=== PATIENT | female | born 1935 | race Caucasian/White ===

== ENCOUNTER 2019-05-13 08:32 | Inpatient (IN) ==
--- NOTE | 2019-05-13 10:10 | Diag Imaging Result Doc PS360 ---
CT HEAD/C-SPINE W/O CONTRAST - 05/13/2019 INDICATION: FALL COMPARISON: 10/14/2017 FINDINGS: Head CT: Stable cerebral atrophy. Grossly stable periventricular white matter chronic microvascular disease mainly on the right side. No intracranial mass or hemorrhage. The skull is intact. The sinuses, mastoids, and middle ears are clear. Cervical spine: Alignment is anatomic. No fracture or subluxation. There is mild multilevel degenerative disc disease at the lower cervical spine. Soft tissues are clear. IMPRESSION: No acute injury. This exam was performed using automated exposure control, adjustment of mA or kV according to patient size, and/or use of iterative reconstruction technique Electronically signed by Doni Oliva 05/13/2019 10:07 AM
--- NOTE | 2019-05-13 10:14 | Diag Imaging Result Doc PS360 ---
CT LUMBAR SPINE W/O CONTRAST - 05/13/2019 INDICATION: FALL COMPARISON: 09/04/2013 FINDINGS: There is mild compression deformity of L1 with about 25% loss of height. This fracture was not present in 2012. Alignment is anatomic. No subluxation. Disc spaces are observed. Moderate degeneration of the sacroiliac joints. No central canal compromise. IMPRESSION: Presumably acute, mild L1 compression fracture. This exam was performed using automated exposure control, adjustment of mA or kV according to patient size, and/or use of iterative reconstruction technique Electronically signed by Doni Oliva 05/13/2019 10:11 AM
--- NOTE | 2019-05-13 10:20 | PROVIDER DOCUMENTATION ---
HPI-Musculoskeletal Pain/Inj - GENERAL Chief Complaint: Back Injury Stated Complaint: LBP Time Seen by Provider: 05/13/19 08:50 Source: patient - HX OF PRESENT ILLNESS-MUSKULOSKELTAL Nature of Presenting Problem: A 83 Y/O FEMALE PRESENTS WITH C/O BACK PAIN. PAIN STARTED AFTER MON OR TOSIN (PT DOES NOT REMEMBER) AFTER SHE FELL WHILE TRYING TO AMBULATE TO RESTROOM USING HER WALKER. HER HOME HEALTH WAS HELPING HER. PT HIT HER HEAD WHEN SHE FELL AND THERE WAS NO LOC. DENIES NAY RADIATION OF PAIN DOWN THE LEGS, TINGLING OR NUMBNESS OR NEW WEAKNESS. PAIN IS ABOUT A 8 AND ANY MOVEMENT MAKES IT WORSE. DENIES ANY LOSS OF BOWEL OR BLADDER CONTROL. TAKES ASPIRIN. DENIES ANY NECK PAIN OR ANY OTHER SYMPTOMS. Quality of Pain: reports: sharp Severity in ED: moderate Onset/Duration: last week Timing: still present, constant, getting worse Modifying Factors: improves with: immobilization, lying down, rest. worse with: movement Any recent injury?: Yes Locality of Occurance: Home Similar Symptoms Previously?: No Recently seen or treated by another doctor?: No - FALL INJURY Location of Pain/Injury: reports: back Pain Radiation: reports: no radiation Reason for Fall: reports: tripped Symptoms prior to fall:: reports: none Loss of Consciousness: no loss of consciousness Injury Associated Symptoms: reports: back/neck pain - BACK & NECK PAIN/INJURY Back/Neck Pain Location: reports: lumbar spine Review of Systems - Adult - REVIEW OF SYSTEMS - ADULT Constitutional: reports: no symptoms reported Eyes: reports: no symptoms reported Ears, Nose, Mouth & Throat: reports: no symptoms reported Cardiovascular: reports: no symptoms reported Respiratory: reports: no symptoms reported Gastrointestinal: reports: no symptoms reported Genitourinary: reports: no symptoms reported Musculoskeletal: reports: see HPI Integumentary: reports: no symptoms reported Neurological: reports: no symptoms reported Psychiatric: reports: no symptoms reported Endocrine: reports: no symptoms reported Hematologic/Lymphatic: reports: no symptoms reported Allergic/Immunologic: reports: no symptoms reported Past History - Adult - PAST MEDICAL HISTORY-ADULT Review of Records: reports: Nursing Assessment Review, Medications Reviewed, Social history reviewed & non-contributory. Major Childhood Illnesses: reports: denies history Cardiovascular: reports: HTN Respiratory: reports: denies history Gastrointestinal: reports: denies history Obstetrical/Gynecological: reports: denies history Genitourinary: reports: denies history Musculoskeletal: reports: denies history Neurological: reports: denies history Endocrine/Immune: reports: denies history Other Conditions: reports: other cancer (skin) - IMMUNIZATION STATUS Childhood Immunizations: See Nurse Assessment Flu Vaccine: See Nurse Assessment - FAMILY HISTORY Family History: reviewed, not pertinent Physical Exam-Injury Related - Physical Exam-Injury Related Initial Vital Signs Reviewed: Yes General Appearance: appears well, alert, no apparent distress Eyes: PERRL/EOMI Head, Ears, Nose, Mouth & Throat: normocephalic/atraumatic, moist mucous membranes, normal ENT inspection Neck: non-tender, supple Respiratory: lungs clear, normal breath sounds, no respiratory distress, no accessory muscle use Cardiovascular: regular rate, rhythm, no JVD, no murmur Abdominal Exam: normal bowel sounds, non tender, soft Back Exam: normal inspection, no CVA tenderness, vertebral tenderness (L1-L3) Extremity: no pedal edema Integumentary: normal color Neurologic: other (NO NEW NEUROLOGICAL DEFICITS) Psych/Mental Status: normal mood/affect, oriented x 3 - Glascow Coma Score Best Eye Response ([place]): (4) open spontaneously Best Verbal Response (Luisa): (5) oriented Best Motor Response ([place]): (6) obeys commands Luisa Total: 15 Progress - PLAN OF CARE/RESULTS Progress/Plan/Lab Results: Vital Signs - 8 hr 05/13/19 11:43 05/13/19 12:00 05/13/19 14:00 Temperature 98.2 F 98.1 F Pulse Rate 76 86 78 Respiratory Rate 20 20 20 Blood Pressure 111/86 131/64 130/90 O2 Sat by Pulse Oximetry 97 97 98 Orders Category Date Time Status Admit - [facility] Routine AdmDCTranf 05/13/19 14:28 Active Activity - Up with Assistance ORDERED Care 05/13/19 14:28 Active Apply Mechanical Device [QM] ORDERED Care 05/13/19 14:28 Active Intake and Output-Strict ORDERED Care 05/13/19 14:28 Active Nursing- MD Consult Request ROUTINE Care 05/13/19 14:44 Active Update & Confirm Home Medicati ROUTINE Care 05/13/19 14:31 Active Vital Signs Order Q 8-HR ASSESS Care 05/13/19 14:28 Active Physician/Provider Consults Routine Cons 05/14/19 08:00 Ordered Social Service Consult Routine Cons 05/14/19 08:[address] HEAD/C-SPINE W/O CONTRAST [CT] Stat Exams 05/13/19 09:[address] LUMBAR SPINE W/O CONTRAST [CT] Stat Exams 05/13/19 09:03 Completed BASIC METABOLIC PANEL [CHEM] Routine Lab 05/14/19 06:00 Ordered CBC WITH DIFF [HEME] Routine Lab 05/14/19 06:00 Ordered CBC WITH DIFF [HEME] Stat Lab 05/13/19 15:45 Completed COMPREHENSIVE METABOLIC PANEL [CHEM] Stat Lab 05/13/19 15:45 Completed Hydrocodone/APAP 7.5 mg/325 mg [Winfred-7.5] Med 05/13/19 10:26 Discontinued 1 each PO NOW ONE Omeprazole [Prilosec] Med 05/14/19 07:00 Active 40 mg PO DAILY@0700 Polyethylene Glycol 3350 [Miralax] Med 05/14/19 09:00 Active 17 gm PO DAILY Physical Therapy Eval/Treatment [OM.PT] Routine Ther 05/14/19 08:00 Active Transfer/Admit Order [TRANSFER] Routine Transfer 05/13/19 14:44 Completed Result Diagrams: 05/13/19 15:45 05/13/19 15:45 - CONSULTS/PCP/HOSPITALIST Notification #1 *Consult/PCP/Hospitalist*: D/W DR DIAS Time Discussed: 12:05 Reason/Comments: ADVISED ADMISSION, ADVISED TO INFORM HOSPITALIST Consult Disposition: Admit #2 Consult: D/W DR ELENA Reason/Comments: ACCEPTED THE ADMISSION Consult Disposition: Admit Departure - Departure Date of Disposition Decision: 05/13/19 Time of Disposition Decision: 01:05 DIAGNOSIS: Fall, Back pain, Compression fracture of L1 lumbar vertebra Disposition: ADMITTED INPATIENT 09 Certified Medical Emergency: Emergent Condition: Stable - Critical Care Note This patient required my direct & personal management of CC.: No Attestation - Physician/ DIOGENES Attestation Patient care was provided by Advanced Practice Provider:: No The physician spent face to face time with patient:: Yes Advanced Practice Provider documentation review:: Supervising physician onsite and consulted in the evaluation and care of this patient. The physician did have a face to face encounter with the patient.
[2019-05-13] MEDS ORDERED: NORCO-7.5 PO ONE (10:26)
--- NOTE | 2019-05-13 15:02 | HISTORY AND PHYSICAL ---
PRIMARY CARE PHYSICIAN: Dr. Perry Torres. CHIEF COMPLAINT: Fall, back pain. HISTORY OF PRESENT ILLNESS: This is an 83-year-old female with a history of hypertension, gastroesophageal reflux disease, and a stroke in 10/2017 that resulted in left- sided weakness. She is wheelchair bound, although she can transfer with help from wheelchair to toilet or a chair. She reports falling on her back from a standing position, while standing beside her wheelchair to get dressed. She reports low back pain right immediately after falling. Over the last 2 to 3 days, The pain radiates down through her buttocks down both legs. She states that she has not been able to transfer alone over the last 24 hours due to the increased pain. She denied any decreased sensation or numbness to her lower extremities. She denies bowel incontinence. She does have urinary incontinence since the stroke. PAST MEDICAL HISTORY: Hypertension, gastroesophageal reflux disease, hyperlipidemia, CVA in 10/2017 with left-sided weakness. PAST SURGICAL HISTORY: Hysterectomy and splenectomy. SOCIAL HISTORY: She denies alcohol, tobacco, or illicit drug use. ALLERGIES: Hydrochlorothiazide, which causes a rash; penicillin, which causes a rash; sulfa, which causes nausea and vomiting. HOME MEDICATIONS: A list will be obtained by the nursing staff, and once verified, will review and restart as appropriate. PHYSICAL EXAMINATION: GENERAL: This is an 83-year-old female who is lying in the bed in the emergency room in no distress. VITAL SIGNS: Blood pressure is 131/64, heart rate of 86, respirations 20, temperature is 98.2 degrees oral, with O2 saturation of 97%. EYES: Pupils equal, round, react to light. EOMs are intact. Sclerae anicteric. HENT: Head is normocephalic, atraumatic. Mucous membranes are moist. NECK: Supple with trachea midline. CARDIOVASCULAR: Regular rate and rhythm. S1 and S2 are appreciated. She has no lower extremity edema. Peripheral pulses are palpable x4 extremities, and calves are nontender bilaterally. PULMONARY: Breath sounds are clear with no increased work of breathing noted. Chest rises and falls symmetric with respiration. GASTROINTESTINAL: Abdomen is soft, nontender, nondistended with bowel sounds in all 4 quadrants. BACK: She does have some lumbar tenderness, mid spine, to palpation. No step- offs noted. GENITOURINARY: She has no CVA or suprapubic tenderness. NEUROLOGIC: She is alert and oriented x3. SKIN: Warm and dry. IMAGING AND LABORATORY DATA: There are no labs at present. CT of the head and cervical spine revealed no acute injury. Cervical spine alignment is anatomic. No fracture or subluxation. There is mild multilevel degenerative disk disease at the lower cervical spine. Soft tissues are clear. CT of the head: Stable cerebral atrophy, grossly stable periventricular white matter, chronic microvascular disease mainly on the right side. No intracranial mass or hemorrhage. The skull is intact. Sinuses, mastoids, and middle ears are clear. Lumbar spine CT reveals presumably acute mild L1 compression fracture with about 25% loss of height. Alignment is anatomic. No subluxation. Disk spaces are observed. Moderate degeneration of the sacroiliac joints. No central canal compromise. ASSESSMENT AND PLAN: 1. Fall. 2. L1 compression fracture with 25% of height loss. 3. Back pain secondary to above. 4. Hypertension. Will identify her home medications and continue. 5. Gastroesophageal reflux disease. Start Prilosec. 6. Status post cerebrovascular accident with left-sided weakness. 7. Deep venous thrombosis prophylaxis. Will use sequential compression devices. 8. Gastrointestinal prophylaxis. Prilosec. Consult PT and orthopedics Review home medications and restart as is appropriate. Discussed with Dr Saenz. Further treatments pending hospital course. Dictated by CADEN Santiago for Fransico Saenz MD cc: CADEN Santiago MD [facility]
[2019-05-13 15:55] LABS: BASO# 0.05 X1000 (0.0-0.2); BASO% 0.3 % (0.0-0.8); EOS# 0.91 X1000 (0.0-0.7); EOS% 6.1 % (0.0-10.0); HEMOGLOBIN 13.5 g/dL (12.0-16.0); IMM GRAN# 0.03 X1000 (0.0-0.04); IMM GRAN% 0.2 % (0.0-0.5); LYMPH# 1.96 X1000 (1.2-3.4); LYMPH% 13.2 % (20.5-51.1); MCH 34.2 PG (27-31); MCHC 33.8 g/dL (33-37); MCV 101.3 FL (81-99); MONO# 2.18 X1000 (0.11-0.59); MONO% 14.7 % (1.7-9.3); MPV 11.1 FL (7.4-10.4); NEUT# 9.72 X1000 (1.4-6.5); NEUT% 65.5 % (42.2-75.2); PLT 373 X1000 (130-400); RBC 3.95 XMIL (4.2-5.4); RDW 14.5 % (11.5-14.5); WBC 14.85 X1000 (4.8-10.8)
[2019-05-13 16:12] LABS: AGAP 9; ALBUMIN 3.5 g/dL (3.5-5.0); ALKALINE PHOSPHATASE 107 U/L (32-104); BUN 18 mg/dL (8-22); CALCIUM 9.1 mg/dL (8.8-10.2); CHLORIDE 103 mmol/L (98-107); COSMO 282; CREATININE 0.7 mg/dL (0.5-0.9); ESTIMATED GFR > 60; GLUCOSE 138 mg/dL (70-104); GOT 11 U/L (10-30); GPT 12 U/L (10-36); SODIUM 139 mmol/L (136-145); TCO2 27 mmol/L (25-35); TOTAL PROTEIN 6.5 g/dL (6.3-8.3)
[2019-05-13 19:22] LABS: BILIRUBIN URINE NEGATIVE (NEGATIVE); BLOOD URINE TRACE (NEGATIVE); CLARITY CLEAR (CLEAR); COLOR YELLOW; GLUCOSE URINE NEGATIVE (NEGATIVE); KETONE URINE TRACE mg/dL (NEGATIVE); LEUKOCYTES URINE TRACE (NEGATIVE); NITRITE URINE NEGATIVE (NEGATIVE); PROTEIN URINE TRACE mg/dL (NEGATIVE); UROBILINOGEN URINE NORMAL
[2019-05-13 19:30] LABS: URINE SOURCE CATH
[2019-05-13 19:31] LABS: URINE BACTERIA 1+ /HFP; URINE CAST NONE SEEN /LPF; URINE CRYSTAL NONE SEEN /HPF; URINE EPITHELIAL CELLS >10 /HPF (<10); URINE RBC <10 /HPF (<10); URINE WBC <10 /HPF (<10); URINE YEAST NONE SEEN /HPF
[2019-05-13] MEDS: WELLBUTRIN SR PO SCH (20:29)
[2019-05-13] MEDS: DESYREL PO SCH (20:29)
[2019-05-13] MEDS: NORCO-10 PO PRN (20:29)
[2019-05-13] MEDS: MYRBETRIQ E.R. PO SCH (20:30)
--- NOTE | 2019-05-14 03:59 | HISTORY AND PHYSICAL ---
ADDENDUM: Patient seen and examined by myself. Full note dictated and discussed with nurse practitioner. Patient presented to the hospital after having fallen. She was having back pain. She has been noted to have a compression fracture at L1 with approximately 25% height loss. We will admit her to the hospital for pain control, follow her blood pressures. Please see full note. cc: Fransico Saenz MD
[2019-05-14 05:54] LABS: BASO# 0.03 X1000 (0.0-0.2); BASO% 0.2 % (0.0-0.8); EOS# 1.32 X1000 (0.0-0.7); EOS% 9.7 % (0.0-10.0); HEMATOCRIT 40.9 % (37.0-47.0); HEMOGLOBIN 13.1 g/dL (12.0-16.0); IMM GRAN# 0.03 X1000 (0.0-0.04); IMM GRAN% 0.2 % (0.0-0.5); LYMPH# 2.04 X1000 (1.2-3.4); LYMPH% 14.9 % (20.5-51.1); MCH 33.2 PG (27-31); MCV 103.5 FL (81-99); MONO% 15.4 % (1.7-9.3); MPV 11.4 FL (7.4-10.4); NEUT# 8.13 X1000 (1.4-6.5); NEUT% 59.6 % (42.2-75.2); PLT 393 X1000 (130-400); RBC 3.95 XMIL (4.2-5.4); RDW 14.8 % (11.5-14.5); WBC 13.65 X1000 (4.8-10.8)
[2019-05-14] MEDS: PRILOSEC PO SCH (06:00)
[2019-05-14 06:06] LABS: AGAP 7; BUN 17 mg/dL (8-22); CALCIUM 9.2 mg/dL (8.8-10.2); CHLORIDE 105 mmol/L (98-107); COSMO 284; CREATININE 0.7 mg/dL (0.5-0.9); ESTIMATED GFR > 60; GLUCOSE 126 mg/dL (70-104); POTASSIUM 4.2 mmol/L (3.5-5.1); SODIUM 141 mmol/L (136-145); TCO2 29 mmol/L (25-35)
[2019-05-14] MEDS: THERA M PLUS PO SCH (08:33)
[2019-05-14] MEDS: MIRALAX PO SCH (08:33)
[2019-05-14] MEDS: ASPIRIN EC PO SCH (08:34)
[2019-05-14] MEDS: AVAPRO PO SCH (08:34)
[2019-05-14] MEDS: WELLBUTRIN SR PO SCH ×2 (08:34→21:35)
[2019-05-14] MEDS: UROGESIC-BLUE PO PRN ×2 (11:14→16:22)
[2019-05-14] MEDS: NORCO-10 PO PRN (11:14)
[2019-05-14] MEDS: MYRBETRIQ E.R. PO SCH (21:34)
[2019-05-14] MEDS: DESYREL PO SCH (21:34)
[2019-05-15] MEDS: PRILOSEC PO SCH (06:09)
[2019-05-15] MEDS: WELLBUTRIN SR PO SCH ×2 (09:07→20:12)
[2019-05-15] MEDS: ASPIRIN EC PO SCH (09:07)
[2019-05-15] MEDS: AVAPRO PO SCH (09:07)
[2019-05-15] MEDS: MIRALAX PO SCH (09:07)
[2019-05-15] MEDS: THERA M PLUS PO SCH (09:07)
[2019-05-15] MEDS: NORCO-10 PO PRN ×2 (09:11→20:13)
--- NOTE | 2019-05-15 15:27 | PROGRESS NOTE ---
DATE: 05/15/2019 SUBJECTIVE: Ms. Virk is having a fairly uneventful hospital stay, tolerating her pain relatively easily. Her temperature is 99.3, pulse 96, respiratory rate 18, BP 138/47. She had a saturation of 95 on 2 L. I discussed the case with Dr. Olson, Orthopedics. He thinks that she needs an LSO brace and we are going to try to fit her for that and put her in a rehab hospital in reference to a now L1 fracture plus left hemiparesis. She has no complaints, and we are interested in getting this move done today. cc: Perry Torres MD
--- NOTE | 2019-05-15 19:39 | PROGRESS NOTE ---
DATE: 05/13/2019 Labs revealed a white count of 14,850. Mind you, she has had a splenectomy. Her hematocrit was 40, platelet count was 373. She had a normal differential with relatively increased monocytes. Her chemistries showed sodium 139, potassium 4, chloride 103, CO2 was 27, BUN was 18, creatinine 0.7, GFR greater than 60, BUN to creatinine ratio of 26. Random glucose 138. Calcium 9.1. AST was 11, ALT was 12, total bilirubin 0.5, total protein 6.5, albumin 3.5, globulin is 3. Her urine showed pH of 7, specific gravity 1.010, trace WBCs, less than 10 RBCs, 1+ bacteria. Her urine culture had no growth. OBJECTIVE: Vital signs: Temperature 98, pulse 89, respiratory rate 18, blood pressure 119/41, saturation 97% on [address] showed a presumably acute mild L1 compression fracture, about 25% loss of height, anatomic alignment. No subluxation. Disk spaces are observed. Moderate degenerative changes of the sacroiliac joint. No central canal compromise. She has an underlying stroke some 4 years ago with some primary left lower leg hemiparesis. cc: Perry Torres MD
[2019-05-15] MEDS: DESYREL PO SCH (20:12)
[2019-05-15] MEDS: MYRBETRIQ E.R. PO SCH (20:12)
[2019-05-16] MEDS: PRILOSEC PO SCH (06:02)
[2019-05-16] MEDS: MIRALAX PO SCH (09:02)
[2019-05-16] MEDS: ASPIRIN EC PO SCH (09:02)
[2019-05-16] MEDS: AVAPRO PO SCH (09:02)
[2019-05-16] MEDS: THERA M PLUS PO SCH (09:02)
[2019-05-16] MEDS: WELLBUTRIN SR PO SCH ×2 (09:02→20:19)
[2019-05-16] MEDS: NORCO-10 PO PRN ×2 (13:03→20:21)
[2019-05-16] MEDS: MYRBETRIQ E.R. PO SCH (20:19)
[2019-05-16] MEDS: DESYREL PO SCH (20:19)
[2019-05-17] MEDS: PRILOSEC PO SCH (06:51)
[2019-05-17] MEDS: MIRALAX PO SCH (08:15)
[2019-05-17] MEDS: WELLBUTRIN SR PO SCH ×2 (08:15→20:35)
[2019-05-17] MEDS: ASPIRIN EC PO SCH (08:15)
[2019-05-17] MEDS: AVAPRO PO SCH (08:15)
[2019-05-17] MEDS: THERA M PLUS PO SCH (08:15)
[2019-05-17] MEDS: NORCO-10 PO PRN (20:34)
[2019-05-17] MEDS: DESYREL PO SCH (20:34)
[2019-05-17] MEDS: MYRBETRIQ E.R. PO SCH (20:35)
[2019-05-18] MEDS: PRILOSEC PO SCH (06:26)
[2019-05-18] MEDS: WELLBUTRIN SR PO SCH ×2 (09:12→21:27)
[2019-05-18] MEDS: MIRALAX PO SCH (09:12)
[2019-05-18] MEDS: ASPIRIN EC PO SCH (09:13)
[2019-05-18] MEDS: THERA M PLUS PO SCH (09:13)
[2019-05-18] MEDS: AVAPRO PO SCH (09:13)
[2019-05-18] MEDS: NORCO-10 PO PRN ×2 (09:22→21:27)
[2019-05-18] MEDS ORDERED: DULCOLAX PR PRN (13:28)
--- NOTE | 2019-05-18 14:53 | PROGRESS NOTE ---
DATE: 05/18/2019 She has been here awaiting placement now for some time. She has her brace now, but nobody has really put it on her. She is constipated and has not had a bowel movement since she has been here. She had some sorbitol and now is going to get an enema. Otherwise she is fine, just awaiting that rehab placement per her insurance. cc: Perry Torres MD
[2019-05-18] MEDS: DESYREL PO SCH (21:26)
[2019-05-18] MEDS: MYRBETRIQ E.R. PO SCH (21:27)
[2019-05-19] MEDS: PRILOSEC PO SCH ×2 (05:39→08:58)
[2019-05-19] MEDS: ASPIRIN EC PO SCH (08:57)
[2019-05-19] MEDS: MIRALAX PO SCH (08:57)
[2019-05-19] MEDS: THERA M PLUS PO SCH (08:57)
[2019-05-19] MEDS: AVAPRO PO SCH (08:57)
[2019-05-19] MEDS: WELLBUTRIN SR PO SCH ×2 (08:57→20:05)
[2019-05-19] MEDS: NORCO-10 PO PRN ×2 (15:37→23:35)
[2019-05-19] MEDS: DESYREL PO SCH (20:05)
[2019-05-19] MEDS: MYRBETRIQ E.R. PO SCH (20:05)
[2019-05-20] MEDS: PRILOSEC PO SCH (06:01)
[2019-05-20] MEDS: AVAPRO PO SCH (08:03)
[2019-05-20] MEDS: ASPIRIN EC PO SCH (08:03)
[2019-05-20] MEDS: WELLBUTRIN SR PO SCH ×2 (08:03→20:31)
[2019-05-20] MEDS: CALMOSEPTINE OINTMENT TOP PRN ×2 (08:03→18:18)
[2019-05-20] MEDS: THERA M PLUS PO SCH (08:03)
[2019-05-20] MEDS: MIRALAX PO SCH (08:03)
[2019-05-20 14:40] LABS: URINE SOURCE CATH
[2019-05-20 14:55] LABS: BILIRUBIN URINE NEGATIVE (NEGATIVE); BLOOD URINE 2+ (NEGATIVE); GLUCOSE URINE NEGATIVE (NEGATIVE); KETONE URINE NEGATIVE (NEGATIVE); LEUKOCYTES URINE 2+ (NEGATIVE); NITRITE URINE NEGATIVE (NEGATIVE); PROTEIN URINE 2+(100 mg/dL) mg/dL (NEGATIVE); UROBILINOGEN URINE NORMAL
[2019-05-20 14:56] LABS: CLARITY MUCOUS (CLEAR); COLOR YELLOW
[2019-05-20 14:59] LABS: URINE CRYSTAL TRIPLE PHOS PRESENT /HPF
[2019-05-20 15:00] LABS: URINE EPITHELIAL CELLS >10 /HPF (<10)
[2019-05-20 15:01] LABS: URINE BACTERIA 2+ /HFP; URINE CAST NONE SEEN /LPF; URINE YEAST NONE SEEN /HPF
[2019-05-20] MEDS: NORCO-10 PO PRN (19:35)
[2019-05-20] MEDS: MYRBETRIQ E.R. PO SCH (20:31)
[2019-05-20] MEDS: DESYREL PO SCH (20:32)
[2019-05-21] MEDS: NORCO-10 PO PRN ×3 (05:53→20:40)
[2019-05-21] MEDS: PRILOSEC PO SCH ×2 (05:53→06:02)
[2019-05-21] MEDS: THERA M PLUS PO SCH (08:29)
[2019-05-21] MEDS: ASPIRIN EC PO SCH (08:29)
[2019-05-21] MEDS: CALMOSEPTINE OINTMENT TOP PRN ×3 (08:29→16:35)
[2019-05-21] MEDS: WELLBUTRIN SR PO SCH ×2 (08:29→20:32)
[2019-05-21] MEDS: AVAPRO PO SCH (08:29)
[2019-05-21] MEDS: MIRALAX PO SCH (08:29)
--- NOTE | 2019-05-21 11:17 | Diag Imaging Result Doc PS360 ---
EXAM: CHEST-PORTABLE - 05/21/2019 HISTORY: Jail / Rehab Placement TECHNIQUE: Portable chest COMPARISON: 10/14/2017 FINDINGS: Heart size is normal. The projection is somewhat lordotic, which mildly limits detail at the lung bases. The lungs appear grossly clear. There is no pleural effusion or pneumothorax identified. IMPRESSION: No evidence of acute disease. Electronically signed by Daniel Champion 05/21/2019 11:15 AM
[2019-05-21] MEDS: MYRBETRIQ E.R. PO SCH (20:32)
[2019-05-21] MEDS: DESYREL PO SCH (20:32)
[2019-05-22] MEDS: PRILOSEC PO SCH ×2 (05:54→07:47)
[2019-05-22] MEDS: MIRALAX PO SCH (08:57)
[2019-05-22] MEDS: WELLBUTRIN SR PO SCH ×2 (09:03→20:47)
[2019-05-22] MEDS: NORCO-10 PO PRN ×2 (09:03→20:47)
[2019-05-22] MEDS: THERA M PLUS PO SCH (09:03)
[2019-05-22] MEDS: AVAPRO PO SCH (09:03)
[2019-05-22] MEDS: ASPIRIN EC PO SCH (09:03)
[2019-05-22] MEDS: MYRBETRIQ E.R. PO SCH (20:47)
[2019-05-22] MEDS: DESYREL PO SCH (20:47)
[2019-05-23] MEDS: PRILOSEC PO SCH (06:06)
[2019-05-23] MEDS: ASPIRIN EC PO SCH (09:40)
[2019-05-23] MEDS: NORCO-10 PO PRN ×2 (09:40→21:45)
[2019-05-23] MEDS: AVAPRO PO SCH (09:40)
[2019-05-23] MEDS: THERA M PLUS PO SCH (09:40)
[2019-05-23] MEDS: WELLBUTRIN SR PO SCH ×2 (09:40→21:45)
--- NOTE | 2019-05-23 18:50 | PROGRESS NOTE ---
DATE: 05/23/2019 SUBJECTIVE: She still is awaiting placement. Continues to have pain in her back, but it is more tolerable. She has had a previous history of constipation, and now is actually having a little diarrhea. OBJECTIVE: She has a Andino in place, which she typically does not wear at her other assisted living place, and it is also her birthday. PLAN: Hopefully they will get her a place to stay. cc: Perry Torres MD
[2019-05-23] MEDS: DESYREL PO SCH (21:45)
[2019-05-23] MEDS: MYRBETRIQ E.R. PO SCH (21:45)
[2019-05-24 06:04] LABS: BASO# 0.06 X1000 (0.0-0.2); BASO% 0.5 % (0.0-0.8); EOS# 0.92 X1000 (0.0-0.7); HEMATOCRIT 37.8 % (37.0-47.0); HEMOGLOBIN 12.6 g/dL (12.0-16.0); IMM GRAN# 0.04 X1000 (0.0-0.04); IMM GRAN% 0.3 % (0.0-0.5); LYMPH# 1.97 X1000 (1.2-3.4); MCH 34.1 PG (27-31); MCHC 33.3 g/dL (33-37); MCV 102.4 FL (81-99); MONO# 1.84 X1000 (0.11-0.59); MPV 10.7 FL (7.4-10.4); NEUT% 63.2 % (42.2-75.2); PLT 502 X1000 (130-400); RBC 3.69 XMIL (4.2-5.4); RDW 14.5 % (11.5-14.5); WBC 13.13 X1000 (4.8-10.8)
[2019-05-24] MEDS: PRILOSEC PO SCH (06:07)
[2019-05-24 06:23] LABS: AGAP 7; ALBUMIN 3.2 g/dL (3.5-5.0); ALKALINE PHOSPHATASE 171 U/L (32-104); BUN 19 mg/dL (8-22); CHLORIDE 103 mmol/L (98-107); COSMO 273; CREATININE 0.7 mg/dL (0.5-0.9); ESTIMATED GFR > 60; GLUCOSE 116 mg/dL (70-104); GOT 14 U/L (10-30); GPT 14 U/L (10-36); POTASSIUM 4.4 mmol/L (3.5-5.1); SODIUM 135 mmol/L (136-145); TCO2 25 mmol/L (25-35); TOTAL PROTEIN 6.2 g/dL (6.3-8.3)
[2019-05-24] MEDS: NORCO-10 PO PRN (06:37)
[2019-05-24] MEDS: THERA M PLUS PO SCH (09:10)
[2019-05-24] MEDS: ASPIRIN EC PO SCH (09:10)
[2019-05-24] MEDS: WELLBUTRIN SR PO SCH (09:10)
[2019-05-24] MEDS: AVAPRO PO SCH (09:10)
--- NOTE | 2019-05-24 09:20 | PROGRESS NOTE ---
DATE: 05/24/2019 An 55-wdep-smy-lady with a fractured L1 with no spinal involvement and a background history of left hemiparesis. She is lying in bed comfortably. She has some issues with some pain with sitting and standing but not significantly. She is having bowel movements, in fact was having diarrhea from MiraLAX. We have stopped that. We are just waiting as usual on a bed assignment. cc: Perry Torres MD
--- NOTE | 2019-05-24 15:16 | PROGRESS NOTE ---
DATE: 05/24/2019 ADDENDUM: I talked about Klebsiella urinary tract infection or Proteus urinary tract infection and that we were going to prescribe ampicillin or amoxicillin 3 times a day, however, she supposedly allergic to ampicillin but can take Keflex, so we are going to give Keflex 500 t.i.d. for 5 days. cc: Perry Torres MD
--- NOTE | 2019-05-24 15:45 | DISCHARGE SUMMARY ---
ADMISSION DATE: 05/13/2019 DISCHARGE DATE: 05/24/2019 HISTORY OF PRESENT ILLNESS: This is an 84-year-old white female, recently hospitalized with a fall with a resulting compression fracture over L1 spine, about 25% loss of height. The fracture was definitely not present before 2012. Alignment is anatomic. No subluxation, disc space are observed. Moderate degeneration of the sacroiliac joint. No central canal compression. She was admitted from the ER with that situation that was superimposed on a previous stroke that she has been rehabbing for two years, just getting back to the point where she could use her hand well, was able to with some assistance get up from a chair and dress prior to her falling with that same assistance. HOSPITAL COURSE: While she was in the hospital, she also had a CT of the head as well as the neck. The head showed stable cerebral atrophy, grossly stable periventricular white matter with chronic microvascular disease, mainly on the right side. No intracranial mass or hemorrhages. The skull was intact. Sinuses, mastoids, and middle ears are clear. Cervical spine in anatomic alignment, no subluxations, and no fractures. There are multiple levels of degenerative disc disease at the lower cervical spine. Soft tissues are clear. Her laboratory data revealed a creatinine in the 40.9 to 37.8 range, white count from 13.13 to the 14.85 range and normal platelets. Urinalysis done revealed 2+ protein, 2+ blood, 10-20 RBCs, 2+ white cells, 10-20 white cells. Her urine subsequently grew out Proteus mirabilis and is sensitive to ampicillin, which we will prescribe at the time of discharge. She also had a brace ordered, lumbar spine brace that she has been wearing a bit, it has been quite some time in getting her situated in her next place of residence. She has also a little bit of dementia. She has gotten to where she can sit up without great discomfort. She still hurts. So, we finally got a place for her to stay. She has some allergies to hydrochlorothiazide, penicillin, and sulfa. We are going to try some amoxicillin 500 q eight hours #21. We are going to leave her Andino in place. It can be discontinued when she is transferred. She is apparently on Avapro for her blood pressure. She takes Wellbutrin 150 b.i.d. She has been taking [place] 10 q eight hours p.r.n. for her back pain. She takes omeprazole 40 daily and Trazodone 100 at bedtime. cc: Perry Torres MD
[2019-05-24 16:09] VITALS: BP 139/55
--- NOTE | 2019-05-24 17:09 | PROGRESS NOTE ---
DATE: 05/15/2019 SUBJECTIVE: The patient is a clinic patient of mine. She had a fall with a recent fracture. There is going to be a placement issue because of the back pain and residual left-sided hemiparesis. She has pain in her central lower back with any kind of movement. Difficult to move around. OBJECTIVE: Vital Signs: Temperature 98 orally, pulse 95, respiratory rate 18, blood pressure 143/45, O2 saturation 97%. Abdomen: Belly is soft. She has not had a bowel movement. Lungs: Clear bilaterally. Extremities: Negative for swelling and edema. ASSESSMENT/PLAN: We are awaiting insurance placement. She is tolerating her symptoms well. We are ordering a lumbosacral brace. cc: Perry Torres MD
--- NOTE | 2019-05-24 17:12 | PROGRESS NOTE ---
DATE: 05/16/2019 SUBJECTIVE: She is still lying in bed for the most part. Any time we have stopped by her room, she tends to be in bed still. It still hurts for her to move any significant amount. OBJECTIVE: Vital Signs: Temperature 98.2 orally, pulse 88, respiratory rate 18, blood pressure 139/41, O2 saturation 98% on room air. ASSESSMENT/PLAN: Awaiting placement. Otherwise unchanged. cc: Perry Torres MD
--- NOTE | 2019-05-24 17:17 | PROGRESS NOTE ---
DATE: 05/17/2019 SUBJECTIVE: She is in bed as usual, in good spirits. Hurts a little bit when she moves, but seems to be better. I have actually seen her sitting up in a chair. OBJECTIVE: Vital Signs: Temperature is 97.7, pulse rate 87, respiratory rate 16, BP 142/67, 02 saturation 96% on room air. PLAN: We are awaiting placement. cc: Perry Torres MD
--- NOTE | 2019-05-24 17:20 | PROGRESS NOTE ---
DATE: 05/19/2019 SUBJECTIVE: As far as reports are known to give, she is doing fine. OBJECTIVE: Vital Signs: Temperature 97.6, pulse 88, respiratory rate 20, BP 135/53, 02 saturation 97%. ASSESSMENT/PLAN: She is in no significant distress, but she is patiently awaiting placement to resume her physical therapy with the new feature of a fractured back. cc: Perry Torres MD
--- NOTE | 2019-05-24 17:24 | PROGRESS NOTE ---
DATE: 05/21/2019 SUBJECTIVE: The patient is patiently lying in bed. She can move seemingly a little better, but she does appreciate a significant catch if she makes any great movement. OBJECTIVE: Vital Signs: Temperature 99, respiratory rate 17, pulse 84, BP 125/31, 02 saturation 93%. ASSESSMENT/PLAN: She is doing fine, waiting for placement still, waiting for physical therapy to activate still. cc: Perry Torres MD
--- NOTE | 2019-05-24 17:30 | PROGRESS NOTE ---
DATE: 05/22/2019 SUBJECTIVE: Still with pain. OBJECTIVE: Vital Signs: Temperature 97.5, pulse 85, respiratory rate 17, systolic BP 94. Abdomen: Belly is soft, nontender. Extremities: Legs with no edema. Chest: Clear. General: No distress. ASSESSMENT/PLAN: Awaiting placement. cc: Perry Torres MD
--- NOTE | 2019-05-24 18:44 | PROGRESS NOTE ---
DATE: 05/14/2019 SUBJECTIVE: She was admitted the previous evening for a fall, sustaining an L1 fracture without any posterior fragments, fair to middling alignment. She has pain in her lower back. She already has problems with left-sided weakness from a previous stroke, primarily affecting her leg, not so much her hand. OBJECTIVE: Vital Signs: Temperature 98, pulse 90, respiratory rate 17, blood pressure 137/37, O2 saturation 96% on 2 L. ASSESSMENT/PLAN: Have intentions of seeing doctor in [place] for possible consideration of a kyphoplasty. cc: Perry Torres MD
== END 2019-05-24 17:30 | DRG 552 ==
LOC: SUPCPDRO → P.ED 08:32 → P.MEDSURG 15:44 → SUATTDRO 15:44
PROVIDERS: ADMIT Internal Medicine; ATTEND Internal Medicine
CPT/HCPCS: 70450; 71010; 71045; 72125; 72131; 80048; 80053; 81001; 85025; 87077; 87088; 87186; 97110; 97161; 97166; 97530; 97535; 99285; A9270